=== PATIENT | female | born 1970 | race Caucasian/White ===

== ENCOUNTER 2016-11-25 16:15 | Inpatient (IN) ==
--- NOTE | 2016-11-25 16:45 | Emergency Department Note ---
Arrival - Arrival Chief Complaint: Chest Pain Stated Complaint: chest pain ED Nursing Triage Note: Transfer from [facility] ER for further evaluation of left sided chest pain onset noon today. Describes as stabbing. +nausea. Diaphoresis earlier-resolved now. Mode of Arrival: Stretcher Limitations: No Limitations Source: Patient Time Seen by Provider: 11/25/16 16:40 - History of Present Illness HPI Narrative: This 46-year-old white female presents with onset of left shoulder and chest pain associated with nausea and diaphoresis which slowly down but persisted precipitating her going to [facility] for further evaluation. There she was found to have a normal EKG and normal enzymes as well as a normal d-dimer. She was then transferred here for further evaluation. Currently she has no significant pain, nausea, sweats, or shortness of breath. She does not have any history of hypertension, hyperlipidemia, smoking, or family medical history of ischemic heart disease. Currently she appears in no acute medical distress. Onset (ago): hour(s) (Patient presents 5 hours since onset) Date of Last Menstrual Period: ablation Allergies/Adverse Reactions: Allergies Allergy/AdvReac Type Severity Reaction Status Date / Time hydrocodone Allergy Unknown/Unable Verified 11/25/16 16:25 to obtain promethazine [From Phenergan] Allergy Unknown/Unable Verified 11/25/16 16:25 to obtain Home Medications: Home Medications Medication Instructions Recorded Confirmed Type No Known Home Medications [No 11/25/16 11/25/16 History Known Home Medications] Review of System - Review of System 12 point system: reviewed and no additional remarkable complaints except as stated - Review of System Constitutional: Present: as per HPI Respiratory: Present: as per HPI Cardiovascular: Present: as per HPI Gastrointestinal: Present: as per HPI Medical,Surgical,& Family Hx - Surgical History Reproductive Surgeries: Surgical HX of;: Gynecologic Surgery (uterine ablation) , Tubal Ligation - Social History Smoking Status: Never smoker Frequency of Alcohol Use: None Type of Drug Use: None Exam Physical Examination: GENERAL: Obese white female in no acute distress. HEENT: Normocephalic. No trauma. Moist mucous membranes. EOMI. PERRLA. ENT NML NECK: Supple. No adenopathy. CARDIAC: Regular. No murmurs. Heart rate 76 CHEST: Clear to auscultation. No respiratory distress. O2 sat 90% ABDOMEN: Soft. Nontender. Active bowel sounds. EXTREMITIES: No trauma. Normal ROM. No pedal edema. SKIN: No diaphoresis. No rash. NEURO: Alert. Neuro intact no focal deficits. Vital Signs: Vital Signs Temperature 97.6 F 11/25/16 16:15 Pulse Rate 76 11/25/16 18:00 Respiratory Rate 18 11/25/16 18:00 Blood Pressure 134/76 11/25/16 18:00 O2 Sat by Pulse Oximetry 97 11/25/16 18:00 Course - Reevaluation(s) Reevaluation #1: Discussed with patient her concern about admission and future problems such as this and being at home. To this end I will discuss her situation with the hospitalist service phoenix cochran - Consultations Consultation #1: Discussed with hospitalist service who will admit for further evaluation treatment. Results - Labs Labs: Lab per [facility] CK total 178 troponin less than 0.03 CK-MB 3.5 magnesium 1.8 BNP 106.5 normal CMP. I reviewed the repeat cardiacs and noted to normalcy. - Impressions EKG: Sinus rhythm at 76 with normal IN interval and QRS duration. Incidental Q' s inferiorly with no interval change from EKG at [facility]. No acute injury pattern noted. Disposition Clinical Impression: Noncardiac chest pain Case discussed with: patient Disposition: Still a Patient Condition: Stable Additional Instructions: Take prescription per instructions. Dr. Zavala's office will call you Monday morning to set up an evaluation. Time of Disposition: 18:35
[2016-11-25 17:08] LABS: Troponin I Only < 0.015 NG/ML (0.00-0.045)
[2016-11-25] MEDS ORDERED: KETOROLAC 30 MG/1 ML VIAL IV STA (17:11)
[2016-11-25] MEDS ORDERED: KETOROLAC 30 MG/1 ML VIAL ONE (17:30)
--- NOTE | 2016-11-25 18:39 | Hospitalist History & Physical ---
Assessment and Plan - Time spent with patient Time spent with patient: Greater than 30 minutes (1) Chest pain Status: Acute Assessment and plan: Admit for observation. Trend cardiac enzymes and EKG Consult cardiology for eval and possible outpatient stress test. Current Visit: Yes (2) Hypertension Status: Acute Assessment and plan: Monitor BP overnight. Current Visit: Yes History of Present Illness Chief complaint: Chest pain History of present illness: Ms. Love is a 46 year old white female with a past medical history significant for hypertension who presents to the emergency room today as a transfer from the [facility] for further evaluation of chest pain and having onset this morning. Patient reports that she has been having intermittent chest pain on and off for the last several years and has been evaluated at [facility] in the recent past for similar complaints. She reports that today she experienced left-sided chest pain radiating into her left shoulder. On exam, the patient is resting comfortably and reports that the pain has subsided and is now a pressure in her left chest. Pain is nonreproducible to palpation. She denies headache, blurry vision, pain on inspiration, shortness of breath, abdominal pain, lower extremity edema. Cardiac enzymes have been negative both at [facility] and here. With 2 sets of negative enzymes and EKGs, the patient is probably safe to go home. However, the patient is insistent upon staying for observation. For this reason , an admission for observation with BP monitoring and cardiology consultation for the morning is feasible. The case has been discussed with Dr. Real, ER physician, and Dr. Le, admitting physician. CODE STATUS was discussed; she is a full code. Home medications have been reviewed and reconciled. Home Medications Medication Instructions Recorded Confirmed Type Ketorolac Tab [Toradol Tab] 10 mg PO Q6H PRN #10 tablet 11/25/16 Rx Allergies Allergy/AdvReac Type Severity Reaction Status Date / Time hydrocodone Allergy Unknown/Unable Verified 11/25/16 16:25 to obtain promethazine [From Phenergan] Allergy Unknown/Unable Verified 11/25/16 16:25 to obtain Medical,Surgical,& Family Hx - Surgical History Reproductive Surgeries: Surgical HX of;: Gynecologic Surgery (uterine ablation) , Tubal Ligation - Family History Family History: Reports;: Family Hypertension, Family Stroke - Social History Smoking Status: Never smoker Frequency of Alcohol Use: None Type of Drug Use: None Marital Status: Lives With:: Spouse Functional capacity: independent ambulation 12 point system: reviewed and no additional remarkable complaints except as stated Exam - Constitutional Vitals: Period Temp Pulse Resp BP Sys/Palmer Pulse Ox Last 24 Hr 97.6 F-97.6 F 76-76 18-18 141-141/85-85 98 Exam: General appearance: obese, no acute distress - Head Head exam: Present: normocephalic, atraumatic - Eye Eye exam: Present: EOMI. Absent: conjunctival injection, nystagmus Pupils: Present: MARQUEZ, normal accommodation - ENT ENT exam: Present: normal exam, normal external ear exam - Neck Neck exam: Present: normal inspection. Absent: lymphadenopathy, tenderness, thyromegaly - Respiratory Respiratory exam: Present: clear to auscultation bilaterally. Absent: rales, rhonchi, wheezes - Cardiovascular Cardiovascular exam: Present: regular rate and rhythm. Absent: carotid bruit, gallop, rubs - GI/Abdominal GI/Abdominal exam: Present: normal bowel sounds. Absent: ascites, distended, mass - Extremities Exam Extremities exam: Present: normal inspection, normal capillary refill. Absent: edema - Back Exam Back exam: Absent: CVA tenderness (L), CVA tenderness (R) - Neurological Exam Neurological exam: Present: alert, oriented X3, CN II-XII intact, reflexes normal - Psychiatric Psychiatric exam: Present: normal affect, normal mood - Skin Skin exam: Present: normal color, warm, dry Results - Labs Lab Results: I have reviewed the past 24 hour labs Labs: Total creatinine kinase 177, CK-MB 3.6, troponin I <0.015, BNP 55
[2016-11-25] MEDS ORDERED: MAGNESIUM SULF RIDER 4 GM in PREMIX 1 EACH IV PRN (18:42)
[2016-11-25] MEDS ORDERED: MAGNESIUM SULF RIDER 2 GM in PREMIX 1 EACH IV PRN (18:42)
[2016-11-25 22:10] LABS: Troponin I Only < 0.015 NG/ML (0.00-0.045)
[2016-11-26] MEDS ORDERED: ONDANSETRON 4 MG/2 ML VIAL IV PRN (00:32)
--- NOTE | 2016-11-26 00:46 | EKG Report ---
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
[2016-11-26] MEDS: ALUMINUM/MAGNES/SIMETH MAX STR 30 ML UDCUP PO PRN ×2 (01:02→11:53)
[2016-11-26 06:30] LABS: Basophils % 0.3 % (0.0-0.8); Eosinophils # 0.3 10*3/uL (0.0-0.87); Eosinophils % 4.6 % (0.00-10.9); Hematocrit 36.8 VOL% (35.7-47.0); Hemoglobin 11.8 GM/DL (12.0-16.0); Immature Granulocytes % 0.3 %; Immature Granulocytes Absolute 0.02 #; Lymphocytes # 1.4 10*3/uL (1.4-4.0); Lymphocytes % 20.3 % (21.3-54.2); Mean Corpuscular HGB Conc 32.1 GM/DL (32-36); Mean Corpuscular Hemoglobin 29 PG (27-34); Mean Corpuscular Volume 88.9 FL (87-102); Mean Platelet Volume 9.5 FL (9.6-12.0); Monocytes # 0.7 10*3/uL (0.11-0.8); Monocytes % 10.3 % (1.7-12.7); Neutrophils # 4.5 10*3/uL (1.4-7.4); Neutrophils % 64.2 % (38.7-73.9); Platelet Count 242 T/CUMM (130-400); Red Blood Count 4.14 MC/CUMM (3.8-5.5); Red Cell Distribution Width 13.2 % (9.3-17.3)
[2016-11-26 06:59] LABS: Calcium 8.8 MG/DL (8.5-10.1); Magnesium 2.3 MG/DL (1.8-2.4); Osmolality,Calculated 281.1 MOS/KG (273-304); Potassium 4.2 MMOL/L (3.5-5.1)
--- NOTE | 2016-11-26 08:17 | Cardiology Consult Note ---
Assessment and Plan (1) Abnormal EKG Status: Acute Assessment and plan: EKG changes are nonspecific and nondiagnostic for evidence of ischemic heart disease Current Visit: Yes (2) Precordial pain Status: Acute Assessment and plan: Some features of the patient's chest discomfort are suspicious for angina. She has had no exertional discomfort which is unusual and her enzyme studies are negative. I do not think this is cardiac in origin. Current Visit: Yes (3) Borderline hypertension Status: Acute Assessment and plan: Because of her edema and history of borderline hypertension I am going to start her on hydrochlorothiazide 25 mg daily. Current Visit: Yes (4) Peripheral edema Status: Acute Current Visit: Yes (5) Elevated TSH Status: Acute Assessment and plan: I will check a T4 to see when the patient is hypothyroid although some of her clinical complaints are suspicious for hypothyroidism. Current Visit: Yes History of Present Illness - Data of Consult Patient: new to practice - Consult Narrative Reason for consult: Chest discomfort edema dyspnea for 3 months duration History of present illness: Ms. Love is a 46 year old female who has a history of borderline hypertension. She has been in good general health. She presents with an episode of chest discomfort yesterday which occurred spontaneously while sitting in a chair. She describes the pain as an left anterior discomfort radiating to the shoulder and down her arm. The pain lasted about an hour and resolved spontaneously. She has been seen in the emergency room on several occasions complaining of chest discomfort and was admitted to have this evaluated. Her enzyme studies are negative and her EKG is unrevealing. She denies any history of exertional anginal chest pain. She has chronic lower extremity edema which he says is significant and resolves at bedtime. She does not give me a history of syncope. She does have palpitations and has been evaluated for palpitations in the past. Of note her TSH is elevated and we will check a T4. She is admitted to rule out myocardial infarction and for evaluation of her chest discomfort edema dyspnea. CC: Raulito Wolfe MD - Home Medications and Allergies Home Medications: Home Medications Medication Instructions Recorded Confirmed Type No Known Home Medications [No 11/25/16 11/25/16 History Known Home Medications] Allergies/Adverse Reactions: Allergies Allergy/AdvReac Type Severity Reaction Status Date / Time hydrocodone Allergy Unknown/Unable Verified 11/25/16 16:25 to obtain promethazine [From Phenergan] Allergy Unknown/Unable Verified 11/25/16 16:25 to obtain Medical,Surgical,& Family Hx - Surgical History Cardiac Surgeries: Patient Denies: Cardiac Catheterization Thoracic Surgeries: Patient denies;: Lobectomy Reproductive Surgeries: Surgical HX of;: Gynecologic Surgery (uterine ablation) , Tubal Ligation - Family History Family History: Reports;: Family Diabetes (father), Family Hypertension (mother, father), Family Stroke - Social History Smoking Status: Never smoker Frequency of Alcohol Use: None Type of Drug Use: None Physical Examination Vital Signs Temp Pulse Resp BP Pulse Ox 97.6 F 76 18 141/85 98 11/25/16 16:15 11/25/16 16:15 11/25/16 16:15 11/25/16 16:15 11/25/16 16:15 Exam: Physical examination: General: The patient is awake and alert and oriented -3. Mood and affect are normal. HEENT: Normocephalic, sclera are clear there are no lid xanthelasmas noted. Oral mucosa is free of cyanosis or pallor. Neck: The neck is supple without JVD. Carotid upstrokes are normal volume and amplitude. There is no audible bruit. There is no palpable thyroid. Trachea is midline. Chest: Lungs: The patient is comfortable at rest without intercostal retractions or abdominal breathing. There are no adventitial sounds rales rubs rhonchi or wheezes noted. Cardiovascular: The PMI is nondisplaced. No palpable thrill S3 or S4. There is a regular rate and rhythm with no murmur rub or gallop noted. Dorsalis pedis posterior tibial pulses are 1+ and equal and femoral pulses are 2+ and equal bilaterally. Abdomen: Abdomen is soft and nontender with normal active bowel sounds. There is no palpable mass or organomegaly noted. There is no midline bruit. Extremities exam: There is no cyanosis clubbing or edema. Skin: Skin is warm and dry without ecchymosis or urticaria or skin rash. There are no palpable nodules. Musculoskeletal: There is no kyphosis or scoliosis noted. Result/EKG - Labs CBC & BMP: 11/26/16 05:26 11/26/16 05:26 Labs: Laboratory Results - last 24 hr 11/25/16 11/25/16 11/25/16 16:40 16:40 21:23 WBC RBC Hgb Hct MCV MCH MCHC RDW Plt Count MPV Neut % (Auto) Lymph % (Auto) Terry % (Auto) Eos % (Auto) Baso % (Auto) Neut # (Auto) Lymph # (Auto) Terry # (Auto) Eos # (Auto) Baso # (Auto) Immature Gran % Nucleated RBC % Immature Gran # Nucleated RBCs # Immature Plt Fraction Sodium Potassium Chloride Carbon Dioxide Anion Gap BUN Creatinine GFR Calculation BUN/Creatinine Ratio Glucose Calculated Osmolality Calcium Magnesium Total Creatine Kinase 177 CK-MB (CK-2) 3.6 Troponin I < 0.015 < 0.015 B-Natriuretic Peptide 55 TSH 3rd Generation 5.800 H 11/26/16 11/26/16 05:26 05:26 WBC 7.0 RBC 4.14 Hgb 11.8 L Hct 36.8 MCV 88.9 MCH 29 MCHC 32.1 RDW 13.2 Plt Count 242 MPV 9.5 L Neut % (Auto) 64.2 Lymph % (Auto) 20.3 L Terry % (Auto) 10.3 Eos % (Auto) 4.6 Baso % (Auto) 0.3 Neut # (Auto) 4.5 Lymph # (Auto) 1.4 Terry # (Auto) 0.7 Eos # (Auto) 0.3 Baso # (Auto) 0.0 Immature Gran % 0.3 Nucleated RBC % 0.0 Immature Gran # 0.02 Nucleated RBCs # 0.00 Immature Plt Fraction 0.0 Sodium 142 Potassium 4.2 Chloride 107 Carbon Dioxide 28 Anion Gap 11.2 BUN 12 Creatinine 0.90 GFR Calculation 90 BUN/Creatinine Ratio 13.00 Glucose 89 Calculated Osmolality 281.1 Calcium 8.8 Magnesium 2.3 Total Creatine Kinase CK-MB (CK-2) Troponin I B-Natriuretic Peptide TSH 3rd Generation - EKG EKG results: interpreted by me (EKG shows sinus rhythm heart rate [address]-T abnormalities)
[2016-11-26] MEDS: ASPIRIN EC 81 MG TABLET PO SCH (08:58)
[2016-11-26] MEDS: hydroCHLOROthiazide 12.5 MG CAPSULE PO SCH (08:58)
[2016-11-26] MEDS: PANTOPRAZOLE 40 MG TABLET PO SCH (08:58)
--- NOTE | 2016-11-26 09:56 | EKG Report ---
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
--- NOTE | 2016-11-26 13:36 | Hospitalist Progress Note ---
Assessment and Plan (1) Hypertension Status: Acute Assessment and plan: Patient has been started on hydrochlorothiazide. Follow blood pressures on this medication. Systolic blood pressures been above 140. However she did have some peripheral edema with it. Will await the outcome of the echo. Current Visit: Yes (2) Precordial pain Status: Acute Assessment and plan: Cardiology evaluation in progress. Signs are stable. Currently the patient the discomfort she had today in the precordial area is not the same as the chest pain however there was "something in there". Current Visit: Yes (3) Elevated TSH Status: Acute Assessment and plan: Check free T4 and total T4. Patient is hypothyroid as suggested by the elevated TSH appropriate measures will be done with supplementation of levothyroxine Current Visit: Yes Hospitalist: Subjective Interval history: Patient has been seen interviewed and examined chart has been reviewed. Appreciate Dr. Dougherty's cardiology evaluation and recommendations. She has been planned for an echocardiogram on Monday have catheterization. Patient was admitted with chest pains. She still has some funny sensation in his chest she says. I also noticed that her TSH is 5.8. I have ordered a total and free T4. Will respond appropriately to those results. I discussed the issues of thyroid assessment with the patient. Exam - Constitutional Vitals: Period Temp Pulse Resp BP Sys/Palmer Pulse Ox Last 24 Hr 97.3 F-98.1 F 65-89 16-19 113-141/60-86 94-100 General appearance: no acute distress, morbidly obese, other (Well-developed) - Head Head exam: Present: normocephalic, atraumatic - Eye Eye exam: Present: EOMI Pupils: Present: MARQUEZ - ENT ENT exam: Present: normal exam - Neck Neck exam: Present: normal inspection - Respiratory Respiratory exam: Present: clear to auscultation bilaterally - Cardiovascular Cardiovascular exam: Present: regular rate and rhythm - GI/Abdominal GI/Abdominal exam: Present: normal bowel sounds, soft - Extremities Exam Extremities exam: Present: full ROM - Neurological Exam Neurological exam: Present: alert, oriented X3, CN II-XII intact - Psychiatric Psychiatric exam: Present: normal affect, normal mood - Skin Skin exam: Present: normal color, warm, dry Results - Labs CBC & BMP: 11/26/16 05:26 11/26/16 05:26 Lab Results: I have reviewed the past 24 hour labs (Free T4 and total T4 pending )
[2016-11-26 16:53] LABS: Free T4 (Free Thyroxine) 1.09 NG/DL (0.76-1.46); T4 (Thyroxine) 10.3 UG/DL (4.7-13.3)
[2016-11-26] MEDS: ACETAMINOPHEN 325 MG TABLET PO PRN (23:01)
--- NOTE | 2016-11-27 09:03 | ECHO Report ---
Yoselin Love Exam Date: 11/26/2016 13:13 Referring Physician: Technologist: hayder Linton ARDMS, RVT Age: 46 Ht (in): 64 Wt (lb): 213 Gender: F Exam Location: [facility] Echo Indications: Abnormal electrocardiogram [ECG] [EKG], Precordial pain, Borderline HTN, Peripheral edema, Elevated TSH BP: 113 / 60 HR: 71 Rhythm: Sinus Technical Quality: Good IMPRESSIONS Normal left ventricular cavity size. Normal left ventricular wall thickness. Left ventricular ejection fraction is estimated at 55%. Moderately increased right ventricular size. The right atrium is normal in size. The left atrium is normal in size. Morphologically normal mitral valve. Trace mitral valve regurgitation. Morphologically normal aortic valve without significant sclerosis or stenosis. There is no aortic regurgitation. Morphologically normal tricuspid valve. Trace tricuspid valve regurgitation. Tricuspid regurgitation velocities suggest a PAP of 33 mmHg. Morphologically normal pulmonic valve without significant stenosis. There is no pulmonic regurgitation. Normal pericardium without effusion. Normal ascending aorta dimension. MEASUREMENTS (Male / Female) Normal Values 2D ECHO LV Diastolic Diameter PLAX 4.4 cm 4.2 - 5.9 / 3.9 - 5.3 cm LV Systolic Diameter PLAX 3.1 cm LV Fractional Shortening PLAX 29.4 % IVS Diastolic Thickness 0.9 cm 0.6 - 1.0 / 0.6 - 0.9 cm LVPW Diastolic Thickness 0.9 cm 0.6 - 1.0 / 0.6 - 0.9 cm RV Internal Dim ED PLAX 3.4 cm Aortic Root Diameter 2.6 cm LA Systolic Diameter LX 3.1 cm 3.0 - 4.0 / 2.7 - 3.8 cm DOPPLER TR Peak Velocity 242.0 cm/s TR Peak Gradient 23.4 mmHg FINDINGS Left Ventricle Normal left ventricular cavity size. Normal left ventricular wall thickness. Left ventricular ejection fraction is estimated at 55%. Right Ventricle Moderately increased right ventricular size. Right Atrium The right atrium is normal in size. Left Atrium The left atrium is normal in size. Mitral Valve Morphologically normal mitral valve. Trace mitral valve regurgitation. Aortic Valve Morphologically normal aortic valve without significant sclerosis or stenosis. There is no aortic regurgitation. Tricuspid Valve Morphologically normal tricuspid valve. Trace tricuspid valve regurgitation. Tricuspid regurgitation velocities suggest a PAP of 33 mmHg. Pulmonic Valve Morphologically normal pulmonic valve without significant stenosis. There is no pulmonic regurgitation. Pericardium Normal pericardium without effusion. Aorta Normal ascending aorta dimension. Yehuda Dougherty MD (Electronically Signed) Final Date: 27 November 2016 09:02
[2016-11-27] MEDS: ASPIRIN EC 81 MG TABLET PO SCH (09:08)
[2016-11-27] MEDS: hydroCHLOROthiazide 12.5 MG CAPSULE PO SCH (09:08)
[2016-11-27] MEDS: PANTOPRAZOLE 40 MG TABLET PO SCH (09:09)
[2016-11-27] MEDS ORDERED: MAGNESIUM SULF RIDER 2 GM in PREMIX 1 EACH IV PRN (09:48)
[2016-11-27] MEDS ORDERED: POTASSIUM CHLORIDE RIDER 10 MEQ in PREMIX 1 EACH IV PRN (09:48)
--- NOTE | 2016-11-27 09:56 | Cardiology Progress Note ---
Assessment and Plan (1) Abnormal EKG Status: Acute Assessment and plan: EKG changes are nonspecific and nondiagnostic for evidence of ischemic heart disease Current Visit: Yes (2) Precordial pain Status: Acute Assessment and plan: Some features of the patient's chest discomfort are suspicious for angina. She has had no exertional discomfort which is unusual and her enzyme studies are negative. I do not think this is cardiac in origin. Because of her symptoms I have offered her cardiac catheterization and after review I feel that that is the best approach. We will plan is for the morning. I have scheduled it for 1000 hrs. Current Visit: Yes (3) Borderline hypertension Status: Acute Assessment and plan: Because of her edema and history of borderline hypertension I am going to start her on hydrochlorothiazide 25 mg daily. Current Visit: Yes (4) Peripheral edema Status: Acute Current Visit: Yes (5) Elevated TSH Status: Acute Assessment and plan: I will check a T4 to see when the patient is hypothyroid although some of her clinical complaints are suspicious for hypothyroidism. Current Visit: Yes Cardiology - PN: Subj Interval history: Reason for consult: Chest discomfort edema dyspnea for 3 months duration History of present illness: Ms. Love is a 46 year old female who has a history of borderline hypertension. She has been in good general health. She presents with an episode of chest discomfort yesterday which occurred spontaneously while sitting in a chair. She describes the pain as an left anterior discomfort radiating to the shoulder and down her arm. The pain lasted about an hour and resolved spontaneously. She has been seen in the emergency room on several occasions complaining of chest discomfort and was admitted to have this evaluated. Her enzyme studies are negative and her EKG is unrevealing. She denies any history of exertional anginal chest pain. She has chronic lower extremity edema which he says is significant and resolves at bedtime. She does not give me a history of syncope. She does have palpitations and has been evaluated for palpitations in the past. Of note her TSH is elevated and we will check a T4. She is admitted to rule out myocardial infarction and for evaluation of her chest discomfort edema dyspnea. November 27, 2016: Patient continues with episodic chest discomfort. Her echocardiogram shows normal LV function without evidence of significant wall motion abnormality. Her EKG shows no significant change in her troponins and lab work are unrevealing for evidence of some significant cardiac issue. She does have a normal T4 with an elevated TSH and may be borderline hypothyroid. Exam (Progress Note) - Constitutional Vitals: Period Temp Pulse Resp BP Sys/Palmer Pulse Ox Last 24 Hr 97.0 F-98.5 F 66-76 16-19 113-118/60-68 94-98 Exam: General:no acute distress. alert and oriented, mood and affect are normal HEENT: no new lesions, sclerae are clear, mouth and pharynx benign Neck: supple, trachea midline, no JVD noted Lungs: no rales ronchi or wheeze is noted. pt comfortable without accesory muscle use to assist with breathing CV: RRR no murmur rub or gallop is noted. Abd: soft and nontender, BSNA, no masses. Ext: no cyanosis, clubbing or edema Neuro: grossly intact without focal neurologic deficit. Result/EKG - Labs CBC & BMP: 11/26/16 05:26 11/26/16 05:26 Labs: Laboratory Results - last 24 hr 11/26/16 05:26 Free T4 1.09 Thyroxine (T4) 10.3
[2016-11-27] MEDS: SODIUM CHLORIDE 0.45% 1,000 ML IV SCH ×2 (10:45→23:10)
--- NOTE | 2016-11-27 11:13 | Hospitalist Progress Note ---
Assessment and Plan (1) Hypertension Status: Acute Assessment and plan: Patient has been started on hydrochlorothiazide. Follow blood pressures on this medication. Systolic blood pressures been above 140. However she did have some peripheral edema with it. Will await the outcome of the echo. Current Visit: Yes (2) Precordial pain Status: Acute Assessment and plan: Plan for coronary catheterization tomorrow Current Visit: Yes (3) Elevated TSH Status: Acute Assessment and plan: Both free T4 and total T4 within normal numbers. I believe the best thing to do is to repeat thyroid function tests in 6 weeks Current Visit: Yes Hospitalist: Subjective Interval history: Patient seen interviewed and examined chart has been no new complaints this morning. Patient will plan for coronary catheterization tomorrow. Exam - Constitutional Vitals: Period Temp Pulse Resp BP Sys/Palmer Pulse Ox Last 24 Hr 97.0 F-98.5 F 66-76 16-19 113-118/60-68 94-98 General appearance: morbidly obese - Head Head exam: Present: normocephalic, atraumatic - Eye Eye exam: Present: EOMI Pupils: Present: MARQUEZ - Respiratory Respiratory exam: Present: clear to auscultation bilaterally - Cardiovascular Cardiovascular exam: Present: regular rate and rhythm - GI/Abdominal GI/Abdominal exam: Present: normal bowel sounds, soft - Extremities Exam Extremities exam: Present: full ROM - Neurological Exam Neurological exam: Present: alert, oriented X3, CN II-XII intact - Psychiatric Psychiatric exam: Present: normal affect, normal mood - Skin Skin exam: Present: normal color, warm, dry Results - Labs CBC & BMP: 11/26/16 05:26 11/26/16 05:26 Lab Results: I have reviewed the past 24 hour labs (Free T4 1.09 and thyroxine total T4 10.3 all within normal limits thyroid function test can be repeated in 6 weeks)
[2016-11-27 19:21] LABS: Partial Thromboplastin Time 27.7 SECS (0-40)
[2016-11-27] MEDS: ACETAMINOPHEN 325 MG TABLET PO PRN (19:43)
[2016-11-27] MEDS ORDERED: KETOROLAC 30 MG/1 ML VIAL IV ONE (20:47)
[2016-11-28 07:21] LABS: Basophils % 0.3 % (0.0-0.8); Eosinophils # 0.3 10*3/uL (0.0-0.87); Eosinophils % 5.1 % (0.00-10.9); Hematocrit 38.7 VOL% (35.7-47.0); Hemoglobin 12.7 GM/DL (12.0-16.0); Immature Granulocytes % 0.5 %; Immature Granulocytes Absolute 0.03 #; Lymphocytes # 1.2 10*3/uL (1.4-4.0); Lymphocytes % 19.4 % (21.3-54.2); Mean Corpuscular HGB Conc 32.8 GM/DL (32-36); Mean Corpuscular Hemoglobin 29 PG (27-34); Mean Corpuscular Volume 88.2 FL (87-102); Mean Platelet Volume 9.3 FL (9.6-12.0); Monocytes # 0.5 10*3/uL (0.11-0.8); Monocytes % 8.4 % (1.7-12.7); Neutrophils # 3.9 10*3/uL (1.4-7.4); Neutrophils % 66.3 % (38.7-73.9); Platelet Count 243 T/CUMM (130-400); Red Blood Count 4.39 MC/CUMM (3.8-5.5); White Blood Count 5.9 T/CUMM (4-12)
[2016-11-28 07:28] LABS: INR 0.9; PT Patient Result 9.9 SECS
--- NOTE | 2016-11-28 07:38 | EKG Report ---
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
[2016-11-28 07:43] LABS: Calcium 8.6 MG/DL (8.5-10.1); Osmolality,Calculated 279.4 MOS/KG (273-304); Potassium 3.8 MMOL/L (3.5-5.1)
[2016-11-28 07:47] LABS: Albumin 3.1 G/DL (3.4-5.0); Bilirubin,Total 0.4 MG/DL (0.2-1.0); Calcium 8.6 MG/DL (8.5-10.1); Osmolality,Calculated 277.5 MOS/KG (273-304); Potassium 3.9 MMOL/L (3.5-5.1); Total Protein 6.6 G/DL (6.4-8.3)
[2016-11-28] MEDS ORDERED: DIAZEPAM 5 MG TABLET PO ONE (08:00)
[2016-11-28] MEDS ORDERED: LIDOCAINE 1%/EPI INJ 20 ML VIAL ONE (08:00)
[2016-11-28] MEDS ORDERED: diphenhydrAMINE CAP 25 MG CAPSULE PO ONE (08:00)
[2016-11-28] MEDS ORDERED: HEPARIN/NACL 0.9% 2 UNITS/ML 500 ML IV ONE ×2 (08:00→10:07)
[2016-11-28] MEDS ORDERED: MIDAZOLAM 2 MG/2 ML VIAL ONE ×2 (08:06→08:22)
[2016-11-28] MEDS ORDERED: fentaNYL 100 MCG/2 ML VIAL ONE (08:07)
--- NOTE | 2016-11-28 08:11 | History and Physical Update ---
Sedation H&P Update - History and Physical H&P was reviewed, the patient examined and there: are no changes in the patients condition since last H&P was completed. - Sedation Plan for Sedation: moderate Patient Consent: Procedure disscussed with patient and patinet has consented., Risks and benefits were discussed with patient,including infection,, bleeding, injury to surrounding structures, seizure, temporary nerve, Patient understands and accepts potential risks/benefits and agrees to, proceed. ASA Class: III Airway Assessment: Class III: Soft palate, base of uvula visible
--- NOTE | 2016-11-28 08:41 | Cardiac Catheterization ---
Date of Procedure:: 11/28/16 Pre-op Diagnosis: Precordial pain edema dyspnea for evaluation Post-op diagnosis: same Procedure: Procedures performed: Left heart catheterization Coronary arteriography Left ventriculography [Right] femoral sheath angiography Mynx closure femoral arteriotomy site After obtaining informed consent the patient was brought to the catheterization lab where the [right] groin was prepped and draped in the usual sterile manner. After intravenous sedation and local anesthesia a needle stick was made to the right femoral artery and a [6 Romansh sheath] was positioned without difficulty. A left heart catheterization was undertaken using first a Jen left diagnostic catheter. The catheter was advanced under fluoroscopy over a guidewire and positioned with its tip in the ostium of the left main coronary artery. Multiple angiograms were obtained of the left coronary artery in multiple views. After adequate angiogram to left coronary obtain this catheter was withdrawn and an AMRM right coronary catheter was advanced over a guidewire under fluoroscopic control where angiography of the right coronary artery was undertaken in multiple views. After adequate angiograms of the right coronary artery were obtained this catheter was withdrawn. A pigtail ventriculographic catheter was advanced over a guidewire under fluoroscopic control to the ascending aorta where it was advanced across the aortic valve and intraventricular hemodynamics were measured. A ventriculogram was obtained in the BREWER projection and afterward a pullback was obtained from the ventricle to the aorta under hemodynamic monitoring and removed. At this point the patient underwent right femoral sheath angiography which demonstrated anatomy appropriate for Mynx closure. This was performed without difficulty and good hemostasis was obtained. The patient then was transferred back to the white having suffered no significant immediate complications. Hemodynamics: Please see the accompanying data sheet Coronary arteriography: Left coronary artery: The left main coronary artery is well-developed and free of significant obstructing lesions. The circumflex coronary is a large nondominant vessel with possesses no significant lesions to its course. The branches of the circumflex likewise are free of significant obstructing lesions. The left anterior descending coronary artery is a large vessel that extends around the apex of the ventricle. The LAD possesses no significant lesions throughout its course. The LAD and its remaining branches are free of significant obstructing lesions. Right coronary artery: The right coronary artery is large vessel that is dominant and is free of significant obstructing lesions. The PDA and posterolateral branches likewise are free of significant obstructing lesions. Left ventriculography: After injection of contrast left ventricle is noted normal size with normal contractility. Mitral and aortic structures are noted to be free of significant abnormality by ventriculography. Right femoral sheath angiography: After injection of contrast in the right femoral arterial sheath it is noted be of normal caliber and enters above the bifurcation. The distal iliac, common femoral and bifurcation appear to be free of significant obstructing lesions based on this limited angiographic study. Conclusions: Angiographically no evidence of significant fixed coronary obstruction. Normal left ventricular size and function. Normal end-diastolic pressures at rest Mynx closure right femoral arteriotomy site Discussion and recommendations: the patient presents with chest discomfort. She has now undergone evaluation demonstrating no evidence of significant fixed coronary obstruction. She'll continue risk factor modification and our plan will be to evaluate for other etiologies of the patient's discomfort. Findings have been reviewed with the patient's family. Anesthesia: moderate conscious sedation Surgeon / Physician: Yehuda Dougherty Asbestos Removal Supervisor: none Estimated blood loss: minimal Specimens: none sent Condition: stable - Medications / Follow-up
[2016-11-28] MEDS: PANTOPRAZOLE 40 MG TABLET PO SCH (09:00)
[2016-11-28] MEDS: hydroCHLOROthiazide 12.5 MG CAPSULE PO SCH (09:00)
[2016-11-28] MEDS: ASPIRIN EC 81 MG TABLET PO SCH (09:00)
--- NOTE | 2016-11-28 14:19 | Hospitalist Progress Note ---
Assessment and Plan (1) Hypertension Status: Acute Assessment and plan: Patient has been started on hydrochlorothiazide. Follow blood pressures on this medication. Systolic blood pressures been above 140. However she did have some peripheral edema with it. Will await the outcome of the echo. Current Visit: Yes (2) Precordial pain Status: Acute Assessment and plan: And coronary catheterization; there was no occlusive coronary disease found. The ventricular function was reported as normal. Therefore this point because of her chest pain is not clear. At this point the patient is still under conscious sedation effect. I think she will workup later on. Did will observe her here also review the catheterization site in the groin tomorrow who thinks the case in the home. Current Visit: Yes (3) Elevated TSH Status: Acute Assessment and plan: Both free T4 and total T4 within normal numbers. I believe the best thing to do is to repeat thyroid function tests in 6 weeks Current Visit: Yes Hospitalist: Subjective Interval history: Patient has been seen interviewed and examined and chart has been reviewed. At the time of my evaluation the patient was still coming out of her conscious sedation. She has had a coronary catheterization today. Findings showed no occlusive coronary artery disease. Left ventricular function was normal. Intention is to observe here today most likely disc discharge her tomorrow. Exam - Constitutional Vitals: Period Temp Pulse Resp BP Sys/Palmer Pulse Ox Last 24 Hr 96.8 F-98.5 F 68-83 16-20 111-138/59-77 96-98 General appearance: over weight, other (Still with some sedative effect of conscious sedation at this point in sleepy.) - Head Head exam: Present: normocephalic, atraumatic - Eye Eye exam: Present: EOMI Pupils: Present: MARQUEZ - ENT ENT exam: Present: normal exam - Respiratory Respiratory exam: Present: clear to auscultation bilaterally - Cardiovascular Cardiovascular exam: Present: regular rate and rhythm - GI/Abdominal GI/Abdominal exam: Present: normal bowel sounds, soft - Extremities Exam Extremities exam: Present: other (Good muscular function at his baseline. No focal neurologic deficit) - Neurological Exam Neurological exam: Present: alert, oriented X3, CN II-XII intact - Psychiatric Psychiatric exam: Present: other (Rather sleepy from effects of conscious sedation) - Skin Skin exam: Present: normal color, warm, dry Results - Labs CBC & BMP: 11/28/16 07:11 11/28/16 07:11 Lab Results: I have reviewed the past 24 hour labs Quality Measures - VTE Contraindication to Pharmacological VTE Prophylaxis: High Risk of Bleeding Specialty Discharge - Follow Up or Referrals Follow up with: Yehuda Dougherty MD [Physician] - 2 Weeks
[2016-11-28] MEDS ORDERED: ALUM/MAG/SIMETH/LIDO VISC 1:1 30 ML BOTTLE PO ONE (15:27)
--- NOTE | 2016-11-28 18:37 | XRay Report ---
Portable chest. Indication: Respiratory preoperative. Comparison: November 25, 2016. The heart and mediastinal contours are unremarkable. The pulmonary vasculature is normal. There is no consolidation, pneumothorax, or pleural effusion. The osseous structures are unremarkable. Impression: No abnormality is seen. PROCEDURE INTERPRETED AT [facility] Final Report Signed by: Dr. Claribel Bustos
--- NOTE | 2016-11-29 07:40 | Discharge Summary ---
Hospital Course - Hospital Course Hospital Course: Ms. Love is a 46 year old female who has a history of borderline hypertension. She has been in good general health. She presents with an episode of chest discomfort yesterday which occurred spontaneously while sitting in a chair. She describes the pain as an left anterior discomfort radiating to the shoulder and down her arm. The pain lasted about an hour and resolved spontaneously. She has been seen in the emergency room on several occasions complaining of chest discomfort and was admitted to have this evaluated. Her enzyme studies are negative and her EKG is unrevealing. She denies any history of exertional anginal chest pain. She has chronic lower extremity edema which he says is significant and resolves at bedtime. She does not give me a history of syncope. She does have palpitations and has been evaluated for palpitations in the past. Of note her TSH is elevated and we will check a T4. She is admitted to rule out myocardial infarction and for evaluation of her chest discomfort edema dyspnea. Patient was admitted to the hospital with chest pain. She was seen in consultation by Dr. Yehuda Dougherty of cardiology. She underwent cardiac catheterization 11/28/16 demonstrating her to have normal coronary arteries and normal left ventricle. She was begun on hydrochlorothiazide during her hospitalization for hypertension. Today for discharge her blood pressure was 126/74. The time for discharge she was comfortable with no chest pain. She was advised to follow up with a primary care physician or nurse practitioner. Diagnosis - Discharge Diagnosis (1) Chest pain Status: Acute (2) Hypertension Status: Chronic (3) Elevated TSH Status: Acute Specialty Discharge - Follow Up or Referrals Follow up with: Yehuda Dougherty MD [Physician] - 2 Weeks Discharge Plan - Discharge Data Disposition: Disch To Home/Self Care Condition at Discharge: Stable Discharge Diet: advance to your usual diet Activity: resume usual activities as tolerated - Discharge Medications New hydroCHLOROthiazide [Hydrochlorothiazide] 25 mg PO DAILY #30 capsule Potassium Chloride Cap/Tab [K Dur] 10 meq PO DAILY #30 tablet - Follow Up or Referral Follow Up: Yehuda Dougherty MD [Physician] - 2 Weeks - Forms/Instructions Instructions: Left Heart Catheterization (DC), Heart Healthy Diet (GEN), Coronary Artery Disease in Women (GEN) Exam - Constitutional Vitals: Period Temp Pulse Resp BP Sys/Palmer Pulse Ox Last 24 Hr 96.8 F-97.9 F 68-83 18-20 118-138/65-77 96-98 Discharge Results Procedures and tests throughout hospitalization: Pending Orders 11/28/16 06:50 CL heart Routine Labs on day of discharge: Labs from last 24 hours 11/28/16 11/28/16 11/28/16 07:11 07:11 07:11 INR 0.9 PT Patient/Control Mix 9.9 Sodium 139 Potassium 3.9 Chloride 104 Carbon Dioxide 28 Anion Gap 10.9 BUN 16 Creatinine 0.90 GFR Calculation 90 BUN/Creatinine Ratio 17.00 Glucose 97 Calculated Osmolality 277.5 Calcium 8.6 Magnesium 2.0 Total Bilirubin 0.40 AST 18 ALT 27 Alkaline Phosphatase 88 Total Protein 6.6 Albumin 3.1 L Globulin 3.5 Albumin/Globulin Ratio 0.8 L Serum , Qual Negative 11/28/16 07:11 INR PT Patient/Control Mix Sodium 140 Potassium 3.8 Chloride 104 Carbon Dioxide 30 Anion Gap 9.8 BUN 16 Creatinine 0.90 GFR Calculation 90 BUN/Creatinine Ratio 17.00 Glucose 96 Calculated Osmolality 279.4 Calcium 8.6 Magnesium Total Bilirubin AST ALT Alkaline Phosphatase Total Protein Albumin Globulin Albumin/Globulin Ratio Serum , Qual DS: Provider Date of admission: 11/25/16 18:16 Primary care physician: . No PCP Attending physician on admission: Nasim Harris MD Consults: 11/25/16 18:42 Consult to Physician [CONS] Routine Comment: Consulting Provider: Cardiology - [facility] When should Consulting Provider be notified: In am Person Notified: SANTI Date Notified: 11/26/16 Time Notified: 07:40 11/28/16 08:42 Consult to Cardiac Rehabilitation [CONS] Routine Reason for Cardiac Rehabilitation: Risk Factor Modification Other Consult Comment: Evaluate and recommend Discharging clinician: Horacio Amaya
[2016-11-29 08:56] VITALS: BP 107/58
[2016-11-29] MEDS: ASPIRIN EC 81 MG TABLET PO SCH (09:27)
[2016-11-29] MEDS: PANTOPRAZOLE 40 MG TABLET PO SCH (09:27)
[2016-11-29] MEDS: hydroCHLOROthiazide 12.5 MG CAPSULE PO SCH (09:27)
== END 2016-11-29 12:40 | disposition home or self-care (01) | DRG 287 ==
LOC: EDUNIT# → EDBD → N.EDINP 16:15 → N.ED 16:15 → OBSVTOIN 18:16 → SUATTDRO 18:16 → N.5E 19:20
PROVIDERS: ADMIT Internal Medicine
PROC: CLCCHCL (ICD-10-PCS; 2016-11-28 10:15)